=== PATIENT | female | born 1995 | race American Indian/Alaskan Native ===

== ENCOUNTER 2017-08-12 08:46 | Emergency (ER) | payer MEDICAID ==
[2017-08-12] MEDS ORDERED: ASPIRIN PO ONE (09:29)
[2017-08-12] MEDS ORDERED: ZOFRAN ODT PO ONE (10:08)
[2017-08-12 10:19] LABS: Basophils # (Auto) 0.1 K/mm3 (0.0-0.1); Basophils % (Auto) 0.9 % (0.0-1.8); Eosinophils # (Auto) 0.1 K/mm3 (0.0-0.4); Hematocrit 23.8 % (30.3-42.9); Hemoglobin 7.8 gm/dl (10.1-14.3); Lymphocytes # (Auto) 2.1 K/mm3 (1.2-5.4); Lymphocytes % (Auto) 20.3 % (13.4-35.0); Mean Corpuscular HGB Conc 33 % (30-34); Mean Corpuscular Hemoglobin 32 pg (28-32); Mean Corpuscular Volume 97 fl (79-97); Monocytes # (Auto) 1.1 K/mm3 (0.0-0.8); Monocytes % (Auto) 10.8 % (0.0-7.3); Platelet Count 330 K/mm3 (140-440); Red Blood Count 2.44 M/mm3 (3.65-5.03)
[2017-08-12 10:20] LABS: Red Cell Distribution Width 20.6 % (13.2-15.2)
[2017-08-12] MEDS ORDERED: TYLENOL PO ONE (10:23)
[2017-08-12] MEDS ORDERED: MORPHINE IV ONE ×2 (10:27→10:28)
[2017-08-12] MEDS ORDERED: NACL 0.9% 1000 ML 1,000 ML IV ONE ×2 (10:29→11:02)
[2017-08-12 10:30] LABS: BUN/Creatinine Ratio 20; Blood Urea Nitrogen 4 mg/dL (7-17); Calcium 8.8 mg/dL (8.4-10.2); Hemolysis Index 10
[2017-08-12 10:32] LABS: INR 1.05 (0.87-1.13)
[2017-08-12 10:33] LABS: Partial Thromboplastin Time 29.2 Sec. (24.2-36.6)
--- NOTE | 2017-08-12 10:38 | Emergency Department Report ---
ED General Adult HPI - General Chief complaint: Nausea/Vomiting/Diarrhea Stated complaint: NAUSEA/VOMITING Time Seen by Provider: 08/12/17 10:06 Source: patient Mode of arrival: Wheelchair Limitations: No Limitations - History of Present Illness Initial comments: 22-year-old female that presents with an onset dizziness, lightheadedness , substernal nonradiating/nonexertional/nonpleuritic chest pain for the past 2 hours. Have been having NB vomiting and diarrhea x 2 wks. Episode began while at work. Feels different from her last SCD episode. Her last episode was one to 2 months ago where she needed a blood transfusion. Patient does state Percocet and morphine at home. She is 11 weeks . No vaginal symptoms. No h/o DVT/PE, unilateral leg swelling. Severity scale (0 -10): 7 Associated Symptoms: nausea/vomiting, other (diarrhea) - Related Data Previous Rx's Medication Instructions Recorded Last Taken Type Ondansetron [Zofran TAB] 4 mg PO Q8HR PRN #20 tablet 08/12/17 Unknown Rx Allergies Allergy/AdvReac Type Severity Reaction Status Date / Time No Known Allergies Allergy Verified 08/12/17 10:20 ED Review of Systems ROS: Stated complaint: NAUSEA/VOMITING Other details as noted in HPI Constitutional: weakness Eyes: denies: eye pain, eye discharge, vision change ENT: denies: ear pain, throat pain Respiratory: shortness of breath Cardiovascular: chest pain Endocrine: no symptoms reported Gastrointestinal: abdominal pain, nausea, vomiting, diarrhea Genitourinary: frequency Musculoskeletal: back pain, myalgia (left thigh pain x 2 wks) Skin: denies: rash, lesions Neurological: headache Psychiatric: denies: anxiety, depression Hematological/Lymphatic: denies: easy bleeding, easy bruising ED Past Medical Hx - Past Medical History Hx Sickle Cell Disease: Yes - Surgical History Past Surgical History?: No - Family History Family history: hypertension - Social History Smoking Status: Never Smoker Substance Use Type: None - Medications Home Medications: Home Medications Medication Instructions Recorded Confirmed Last Taken Type Ondansetron [Zofran TAB] 4 mg PO Q8HR PRN #20 tablet 08/12/17 Unknown Rx ED Physical Exam - General Limitations: No Limitations - Head Head exam: Present: atraumatic, normocephalic - Eye Eye exam: Present: normal appearance - ENT ENT exam: Present: normal orophraynx, mucous membranes dry - Neck Neck exam: Present: normal inspection - Respiratory Respiratory exam: Present: normal lung sounds bilaterally - Cardiovascular Cardiovascular Exam: Present: regular rate, normal rhythm, other (cap refill 3- 5s) - GI/Abdominal GI/Abdominal exam: Present: soft, tenderness (LLQ, RLQ). Absent: guarding, rebound - Neurological Exam Neurological exam: Present: alert, oriented X3 - Psychiatric Psychiatric exam: Present: normal affect, normal mood - Skin Skin exam: Present: warm, dry ED Course Vital Signs 08/12/17 08/12/17 08/12/17 08:48 09:13 09:15 Temperature 98.4 F 99.4 F Pulse Rate 100 H 93 H 125 H Respiratory 24 16 16 Rate Blood Pressure 112/80 108/73 Blood Pressure 115/79 [Left] O2 Sat by Pulse 100 100 100 Oximetry 08/12/17 08/12/17 08/12/17 09:30 09:45 10:00 Temperature Pulse Rate 88 90 87 Respiratory 21 16 21 Rate Blood Pressure 108/63 95/61 105/60 Blood Pressure [Left] O2 Sat by Pulse 100 100 100 Oximetry 08/12/17 08/12/17 08/12/17 10:15 10:30 10:45 Temperature Pulse Rate 83 83 87 Respiratory 17 20 16 Rate Blood Pressure 108/70 90/48 107/72 Blood Pressure [Left] O2 Sat by Pulse 100 100 100 Oximetry 08/12/17 08/12/17 08/12/17 11:00 11:11 11:15 Temperature Pulse Rate 78 81 Respiratory 22 14 19 Rate Blood Pressure 107/69 93/52 Blood Pressure [Left] O2 Sat by Pulse 100 Oximetry 08/12/17 08/12/17 08/12/17 11:30 11:45 12:00 Temperature Pulse Rate 83 78 74 Respiratory 20 22 19 Rate Blood Pressure 94/45 93/46 97/55 Blood Pressure [Left] O2 Sat by Pulse Oximetry 08/12/17 08/12/17 08/12/17 12:15 12:30 12:45 Temperature Pulse Rate 75 77 90 Respiratory 21 16 20 Rate Blood Pressure 92/54 98/61 92/54 Blood Pressure [Left] O2 Sat by Pulse 97 Oximetry 08/12/17 08/12/17 08/12/17 13:00 13:15 13:30 Temperature Pulse Rate 75 77 74 Respiratory 19 22 21 Rate Blood Pressure 93/56 93/57 96/51 Blood Pressure [Left] O2 Sat by Pulse Oximetry 08/12/17 08/12/17 13:45 14:00 Temperature Pulse Rate 80 78 Respiratory 19 23 Rate Blood Pressure 94/46 103/53 Blood Pressure [Left] O2 Sat by Pulse 100 100 Oximetry ED Medical Decision Making - Lab Data Result diagrams: 08/12/17 09:48 08/12/17 09:48 - EKG Data -: EKG Interpreted by Me EKG shows normal: sinus rhythm, axis, intervals, QRS complexes, ST-T waves (T wave inversions in anterior leads) Rate: normal - EKG Data When compared to previous EKG there are: previous EKG unavailable Interpretation: nonspecific ST-T wave ely - Medical Decision Making 22-year-old female with past history sickle cell disease that is approximately 11 weeks who presents today with vomiting/diarrhea/chest pain. On presentation, patient mild hypotensive with systolic in the 90s and appears clinically dry on physical exam. Likely is due to dehydration. Patient was given IV fluids which improved her blood pressure. EKG was nonischemic. Lab work was unremarkable. Patient was given a GI cocktail which resolved her chest pain. A d-dimer was ordered by accident. I have low suspicion for PE in this patient especially given resolution of chest pain with GI cocktail and history of presentation. I do not think the patient needs a CT PE at this point time. heart tones were able to check normal cardiac activity. Patient will be discharged home with Zofran. She was started on vitamins. Discussed clear liquids diet with the patient. Return precautions have been discussed. Low suspicion for sickle cell crisis. - Differential Diagnosis sickle cell crisis, PE, acute chest, gastroenteritis, dehydration, ACS Critical care attestation.: If time is entered above; I have spent that time in minutes in the direct care of this critically ill patient, excluding procedure time. ED Disposition Clinical Impression: Gastroenteritis Vomiting Qualifiers: Vomiting type: cyclical vomiting Vomiting Intractability: non-intractable Nausea presence: with nausea Qualified Code(s): G43.A0 - Cyclical vomiting, not intractable Disposition: DC-01 TO HOME OR SELFCARE Is pt being admited?: No Does the pt Need Aspirin: No Condition: Stable Prescriptions: Ondansetron [Zofran TAB] 4 mg PO Q8HR PRN #20 tablet PRN Reason: Nausea And Vomiting Referrals: PRIMARY CARE,MD [Primary Care Provider] - 3-5 Days
--- NOTE | 2017-08-12 10:58 | XRay Report ---
PORTABLE CHEST INDICATION: Chest pain. History of sickle cell. COMPARISON: None similar at this institution. FINDINGS: Portable, frontal chest radiograph demonstrates normal cardiomediastinal silhouette. Clear lungs. Intact bones. EKG leads. Abdomen shielded. CONCLUSION: No acute disease. Thank you for the opportunity to participate in this patient's care.
[2017-08-12] MEDS ORDERED: D5NS 0.2% 1,000 ML IV SCH (11:00)
[2017-08-12] MEDS ORDERED: ALUM-MAG HYDROX-SIMETH 200-200-20MG/5ML PO ONE (11:04)
[2017-08-12] MEDS ORDERED: LIDOCAINE VISCOUS 2% PO ONE (11:04)
[2017-08-12 15:42] VITALS: BP 103/63
== END 2017-08-12 15:30 | disposition home or self-care (01) ==
LOC: ED 08:46
DX: O99.611 Diseases of the digestive system complicating pregnancy, first trimester (principal); K52.9 Noninfective gastroenteritis and colitis, unspecified; Z3A.11 11 weeks gestation of pregnancy
CPT/HCPCS: 36415; 71045; 80048; 84484; 84703; 85025; 85045; 85379; 85610; 85730; 93005; 93010; 96365; 96366; 99284; J7030; Q0162